=== PATIENT | female | born 1945 | race Caucasian/White ===

== ENCOUNTER 2017-11-21 09:51 | Emergency (ER) | payer MEDICARE ==
[2017-11-21 11:39] VITALS: BP 151/79
--- NOTE | 2017-11-21 12:01 | UC ---
Respiratory Complaint HPI - HPI Summary HPI Summary: Cough for 2 weeks-sometimes cough so much she gets dizzy--no fevers bringing up clear sputum, no chest pain, GIL, Orthopnea, - History of Current Complaint Chief Complaint: UCGeneralIllness Stated Complaint: URI Time Seen by Provider: 11/21/17 11:43 Hx Obtained From: Patient ?: No Onset/Duration: Gradual Onset, Lasting Weeks - 2, Still Present Timing: Constant Severity Initially: Mild Severity Currently: Mild Pain Intensity: 0 Character: Cough: Productive Aggravating Factors: Nothing Alleviating Factors: Nothing Associated Signs And Symptoms: Positive: Pleuritic Chest Pain, URI - Allergies/Home Medications Allergies/Adverse Reactions: Allergies Allergy/AdvReac Type Severity Reaction Status Date / Time MS Amoxicillin Allergy Intermediate Nausea And Verified 11/21/17 11:39 [From Augmentin] Vomiting MS Clavulanic Acid Allergy Intermediate Nausea And Verified 11/21/17 11:39 [From Augmentin] Vomiting SENSITIVITY TO PRESERVATIVES AdvReac Mild Itching Uncoded 11/21/17 11:39 Home Medications: Home Medications Multiple Vitamins W/ Minerals [FoundValue [place]] 1 tab PO DAILY [History Confirmed 11/21/17] PMH/Surg Hx/FS Hx/Imm Hx Previously Healthy: No - Chronic low back pain Endocrine History: Dyslipidemia Cardiovascular History: Hypertension Other History Of: Negative For: Anticoagulant Therapy - Surgical History Surgical History: Yes Surgery Procedure, Year, and Place: 07/30 RIGHT BUNIONECTOMY, RECONSTRUCTION OF RIGHT FOOT- [place]. 11/06/11 [place] [facility] [place] OF [place] [facility] [place]. [place]05/12 NEEDLE [place] [facility] 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 Lives: With Family Alcohol Use: Daily Alcohol Amount: 2 glasses red wine/day Substance Use Type: None Smoking Status (MU): Former Smoker Type: Cigarettes Amount Used/How Often: LESS THAN 1 PPD Length of Time of Smoking/Using Tobacco: 6 YRS Have You Smoked in the Last Year: No When Did the Patient Quit Smoking/Using Tobacco: 1969 - Immunization History Most Recent Influenza Vaccination: FALL 2012 Most Recent Tetanus Shot: UP TO DATE Most Recent Pneumonia Vaccination: MARCH 2011 Review of Systems Constitutional: Negative Skin: Negative Eyes: Negative ENT: Negative Respiratory: Cough Cardiovascular: Negative Gastrointestinal: Negative Genitourinary: Negative Motor: Negative Neurovascular: Negative Musculoskeletal: Negative Neurological: Negative Psychological: Negative Is Patient Immunocompromised?: No All Other Systems Reviewed And Are Negative: Yes Physical Exam Triage Information Reviewed: Yes Appearance: Well-Appearing, No Pain Distress, Well-Nourished Vital Signs: Initial Vital Signs Temp 97.6 F 11/21/17 11:35 Pulse 93 11/21/17 11:35 Resp 18 11/21/17 11:35 BP 151/79 11/21/17 11:35 Pulse Ox 100 11/21/17 11:35 Vital Signs Reviewed: Yes Eye Exam: Normal Eyes: Positive: Conjunctiva Clear ENT Exam: Normal ENT: Positive: Normal ENT inspection, Hearing grossly normal, Pharynx normal, TMs normal, Uvula midline. Negative: Nasal congestion, Nasal drainage, Tonsillar swelling, Tonsillar exudate, Trismus, Muffled voice, Hoarse voice, Dental tenderness, Sinus tenderness Dental Exam: Normal Neck exam: Normal Neck: Positive: Supple, Nontender, No Lymphadenopathy Respiratory Exam: Normal Respiratory: Positive: Chest non-tender, Lungs clear, Normal breath sounds, No respiratory distress, No accessory muscle use Cardiovascular Exam: Normal Cardiovascular: Positive: RRR, No Murmur, Pulses Normal, Brisk Capillary Refill Abdominal Exam: Normal Abdomen Description: Positive: Nontender, No Organomegaly, Soft Bowel Sounds: Positive: Present Musculoskeletal Exam: Normal Musculoskeletal: Positive: Strength Intact, ROM Intact, No Edema Neurological Exam: Normal Neurological: Positive: Alert, Muscle Tone Normal Psychological Exam: Normal Skin Exam: Normal UC Diagnostic Evaluation - Laboratory O2 Sat by Pulse Oximetry: 100 Diagnostic Studies Comment: Influenza A/B (-) - Radiology Xray Interpretation: No Acute Changes Radiology Interpretation Completed By: ED Physician, Radiologist - EKG Cardiac Rate: NL Cardiac Rhythm: Sinus: Normal Ectopy: None ST Segment: Normal Re-Evaluation - Re-Evaluation First Eval Change: Improved - Cough relief with Robitussin and Codiene Respiratory Course/Dx - Course Course Of Treatment: Robitussin and Codiene, Zithromax, increase fluids, follow with pcp - Differential Dx/Diagnosis Provider Diagnoses: Acute Bronchitis Discharge - Discharge Plan Condition: Stable Disposition: HOME Prescriptions: Azithromycin TAB* [Zithromax TAB (Z-PRAVIN) 250 mg #6 tabs] 2 tab PO .TODAY, THEN 1 DAILY #1 pravin guaiFENesin/CODIEN 100MG-10MG* [Robitussin AC 100Mg-10Mg*] 5 ml PO Q4H PRN #90 ml MDD 30 ml PRN Reason: Cough Patient Education Materials: Acute Bronchitis (ED), DASH Eating Plan (ED), Hypertension (ED) Referrals: Ailin De MD [Primary Care Provider] - 1 Week
[2017-11-21] MEDS ORDERED: guaiFENesin/CODIEN 100MG-10MG* 5 ML UDC PO ONE (12:12)
--- NOTE | 2017-11-21 12:39 | RAD ---
INDICATION: Cough COMPARISON: September 25, 2016 TECHNIQUE: PA and lateral dual-energy views were obtained. FINDINGS: Bones/Soft Tissues: There are no acute bony findings. Cardiomediastinal: The cardiomediastinal silhouette is normal. Lungs: There are no infiltrates. Pleura: There are no pleural effusions. Other: None IMPRESSION: NO ACTIVE DISEASE.
== END 2017-11-21 13:16 | disposition home or self-care (01) ==
LOC: UCEAST 09:51
DX: J20.9 Acute bronchitis, unspecified (principal); M54.5 Low back pain; E78.5 Hyperlipidemia, unspecified; I10 Essential (primary) hypertension; Z96.643 Presence of artificial hip joint, bilateral; Z87.891 Personal history of nicotine dependence
CPT/HCPCS: 71046; 87502; 93005; 99212; A9270-GY; G0463

== ENCOUNTER 2017-12-31 09:59 | Day surgery (SDC) | payer MEDICARE ==
[~2017-12-31 09:59] MED LIST: Acetaminophen TAB* 325 MG PO PRN; Buffered Lidocaine 0.9% SYRIN* 5 ML/SYR SYRINGE INTRADERM ONE; Cyclopentolate 1% OPTH.SOL* 2 ML BTL ONE; Ketorolac 0.5% OPHTH (NF) 0.5 % 5 ML BTL ONE; Lidocaine 1% MPF* 2 ML VIAL ONE; Neomycin/Polymy/Dex OPHTH.OIN* 3.5 GM ONE; Phenylephrine 2.5% OPTH.SOL* 2 ML BTL ONE; Tetracaine 0.5% OPTH.SOL 4 ML* 1 DROP BTL ONE; Tropicamide 1% OPTH.SOL* BTL ONE
[2017-12-31] MEDS ORDERED: Midazolam* 1 MG/ML 2 ML VIAL (2 MG) ONE (10:37)
[2017-12-31] MEDS ORDERED: fentaNYL* 50 MCG/ML 2 ML VIAL (100 MCG VIAL) ONE (10:37)
[2017-12-31 11:42] VITALS: BP 136/82
--- NOTE | 2017-12-31 13:12 | OP ---
DATE OF OPERATION/DATE OF DICTATION: 12/31/2017. DATE OF : 1945. SURGEON: Dr. Huang Dennison. DECISION ANALYST: None. ANESTHESIA: Topical with intravenous sedation. PRE-OP DIAGNOSIS: Cataract, right eye. POST-OP DIAGNOSIS: Cataract, right eye. OPERATIVE PROCEDURE: Phacoemulsification and cataract extraction with posterior chamber intraocular lens implant, right eye. COMPLICATIONS: None. BLOOD LOSS: None. OPERATIVE FINDINGS: The patient was brought to the operating room and received a small amount of int ravenous sedation. A drop of Tetracaine was placed in her right eye. She was prepped and draped in the usual sterile fashion for ophthalmic surgery and attention was directed to the right eye where a speculum was placed. A paracentesis was created at the 11 o'clock position and 0.1 cc of 1 percent p reservative-free Lidocaine was injected into the anterior chamber followed by DisCoVisc. The eye was digitally stabilized while a 2.75 mm keratome was used to create a triplanar clear corneal incision at the 9 o'clock position. A continuous curvilinear capsulorrhexis was created with a cystotome and Utrata forceps. BSS on a cannula was used to hydrodissect the lens from the capsule. Phacoemulsific ation was performed in a [id number] technique to create four fragments which were removed. R esidual cortical material was removed with irrigation and aspiration. DisCoVisc was used to inflate t he capsular bag and an AUOOTO 22.0 diopter lens was folded and inserted into the capsular bag. DisCo Visc was removed using irrigation and aspiration. BSS on a cannula was used to hydrate the corneal s troma and seal the wound. At the end of the case the pupil was round and the lens was centered. The eye was of normal pressure and the wound was water tight. The speculum was removed and topical Maxit rol ointment was placed on the surface of the eye. The eye was closed, patched and shielded and the patient was sent to the recovery room in stable condition with post operative instructions and follow -up appointment given. [id number]/[facility] #: [id number]
== END 2017-12-31 11:45 | disposition home or self-care (01) ==
LOC: OREAST 09:59
PROVIDERS: ATTEND Ophthalmology
DX: H25.11 Age-related nuclear cataract, right eye (principal); E78.00 Pure hypercholesterolemia, unspecified; F32.9 Major depressive disorder, single episode, unspecified; J30.1 Allergic rhinitis due to pollen; F17.210 Nicotine dependence, cigarettes, uncomplicated; Z96.643 Presence of artificial hip joint, bilateral; Z88.0 Allergy status to penicillin; Z88.8 Allergy status to other drugs, medicaments and biological substances
CPT/HCPCS: A9270-GY; J2250; J3010; V2632

== ENCOUNTER 2018-01-07 07:57 | Day surgery (SDC) | payer MEDICARE ==
[2018-01-07] MEDS ORDERED: fentaNYL* 50 MCG/ML 2 ML VIAL (100 MCG VIAL) ONE (09:00)
[2018-01-07] MEDS ORDERED: Midazolam* 1 MG/ML 2 ML VIAL (2 MG) ONE (09:00)
[2018-01-07 09:52] VITALS: BP 139/76
--- NOTE | 2018-01-08 04:02 | OP ---
DATE OF OPERATION: 01/07/18 [facility] DATE OF : 45 SURGEON: Dr. Huang Dennison. ADMITTING COORDINATOR: None. ANESTHESIA: Topical with intravenous sedation. PRE-OP DIAGNOSIS: Cataract, left eye. POST-OP DIAGNOSIS: Cataract, left eye. OPERATIVE PROCEDURE: Phacoemulsification and cataract extraction with posterior chamber intraocular lens implant, left eye. COMPLICATIONS: None. BLOOD LOSS: None. DESCRIPTION OF PROCEDURE: The patient was brought to the operating room and received a small amount of intravenous sedation. A drop of Tetracaine was placed in her left eye. The patient was prepped and draped in the usual sterile fashion for ophthalmic surgery and attention was directed to the left eye where a speculum was placed. A para-centesis was created at the 5 o'clock position and 0.1 cc of 1 percent preservative-free Lidocaine was injected into the anterior chamber followed by DisCoVisc. The eye was digitally stabilized while a 2.75 mm keratome was used to create a triplanar clear corneal incision at the 3 o'clock position. A continuous curvilinear capsulorrhexis was created with a cystotome and Utrata forceps. BSS on a cannula was used to hydrodissect the lens from the capsule. Phacoemulsification was performed in a divide-and- conquer technique to create four fragments which were removed. Residual cortical material was removed with irrigation and aspiration. DisCoVisc was used to inflate the capsular bag and an [id number] 22.0 diopter lens was folded and inserted into the capsular bag. DisCoVisc was removed using irrigation and aspiration. BSS on a cannula was used to hydrate the corneal stroma and seal the wound. At the end of the case the pupil was round and the lens was centered. The eye was of normal pressure and the wound was water tight. The speculum was removed and topical Maxitrol ointment was placed on the surface of the eye. The eye was closed, patched and shielded and the patient was sent to the recovery room in stable condition with post operative instructions and follow-up appointment given. [id number]/[facility] #: [id number] TANVI
== END 2018-01-07 10:02 | disposition home or self-care (01) ==
LOC: OREAST 07:57
PROVIDERS: ATTEND Ophthalmology
DX: H25.12 Age-related nuclear cataract, left eye (principal); E78.00 Pure hypercholesterolemia, unspecified; F32.9 Major depressive disorder, single episode, unspecified; J30.2 Other seasonal allergic rhinitis; Z88.0 Allergy status to penicillin; Z87.891 Personal history of nicotine dependence
CPT/HCPCS: A9270-GY; J2250; J3010; V2632

== ENCOUNTER → 2019-08-24 09:31 | Day surgery (SDC) | payer MEDICARE ==
[~2019-08-24 09:31] MED LIST changes: -Acetaminophen TAB* 325 MG PO PRN; -Buffered Lidocaine 0.9% SYRIN* 5 ML/SYR SYRINGE INTRADERM ONE; +Buffered Lidocaine 1% SYRIN* 1 ML/SYRINGE INTRADERM ONE; +Clindamycin 900 MG/D5W BAG(*) 900 MG/50 ML BAG IVPB ONE; -Cyclopentolate 1% OPTH.SOL* 2 ML BTL ONE; -Ketorolac 0.5% OPHTH (NF) 0.5 % 5 ML BTL ONE; +Lactated Ringers 1000 ML Bag* 1,000 ML IV SCH; -Lidocaine 1% MPF* 2 ML VIAL ONE; +Lidocaine 2% PF* 10 ML AMP ONE; +Midazolam* 1 MG/ML 2 ML VIAL (2 MG) ONE; -Neomycin/Polymy/Dex OPHTH.OIN* 3.5 GM ONE; -Phenylephrine 2.5% OPTH.SOL* 2 ML BTL ONE; +Propofol* 10 MG/ML 20 ML BTL ONE; -Tetracaine 0.5% OPTH.SOL 4 ML* 1 DROP BTL ONE; -Tropicamide 1% OPTH.SOL* BTL ONE; +fentaNYL* 50 MCG/ML 2 ML VIAL (100 MCG VIAL) ONE
[2019-08-24 15:22] VITALS: BP 153/84
--- NOTE | 2019-08-25 01:01 | OP ---
DATE OF OPERATION: 08/24/19 - [facility] DATE OF : 45 ATTENDING SURGEON: Martin Kaye MD ASSISTED BY: Lakhwinder Valle PA-C PRE-OP DIAGNOSIS: Painful midfoot hardware, right side. POST-OP DIAGNOSIS: Painful midfoot hardware, right side. OPERATIVE PROCEDURE: Removal of hardware, right midfoot. DESCRIPTION OF PROCEDURE: The patient was taken to the operating room where a longitudinal incision was made along the medial border of the midfoot. We stripped medially to expose the plate and dorsally to expose the cannulated lag screw. Torque headed screwdriver fit this quite well, it was a #6 and then dorsal screw was removed. However, the medial plate heads were smaller. We tried a 6 and 8 and we were unable to find a screw head to fit, so with a 2.4 mm drill bit or deja tip drill, I cored out the head of the screws. We then removed the plate over the shafts, which were then able to be removed with a rongeur and small needle mechanic welder truck driver tip. The wound was irrigated thoroughly, closed with interrupted Monocryl and nylon for the skin and a compression dressing applied. [id number]/[facility] #: [id number] TANVI
== END | disposition home or self-care (01) ==
LOC: OR 09:31
PROVIDERS: ATTEND Orthopaedic Surgery
DX: T84.84XA Pain due to internal orthopedic prosthetic devices, implants and grafts, initial encounter (principal); Y83.1 Surgical operation with implant of artificial internal device as the cause of abnormal reaction of the patient, or of later complication, without mention of misadventure at the time of the procedure; E78.00 Pure hypercholesterolemia, unspecified; M19.90 Unspecified osteoarthritis, unspecified site; F41.8 Other specified anxiety disorders; Z88.0 Allergy status to penicillin; Z88.1 Allergy status to other antibiotic agents; Z87.891 Personal history of nicotine dependence
CPT/HCPCS: 88300; J2001; J2250; J2704; J3010

== ENCOUNTER 2019-10-01 11:09 | Emergency (ER) | payer MEDICARE ==
--- NOTE | 2019-10-01 13:46 | ED ---
Back Pain - HPI Summary HPI Summary: Pt. is a 73 y.o female who presents to the ER for left lower back pain that radiates down leg. Pt. notes hx of low back pain and has seen neurosx in the past as well as pain clinic for injections. Pt. denies any new injuries or falls. Pt. notes recent right foot surgery. Pt. denies fever, chills, cp, sob, urinary sx, numbness, tingling, weakness, bowel or bladder dysfunction. Pt. notes she has a rx for percocet from recent sxs and took one last night with mild improvement. Sxs are are mild in severity. Movement makes sxs worse. Nothing makes sxs better. - History of Current Complaint Chief Complaint: EDBackInjuryPain Stated Complaint: BACK/LEG PAIN PER PT Time Seen by Provider: 10/01/19 13:45 Hx Obtained From: Patient Pain Intensity: 9 - Allergies/Home Medications Allergies/Adverse Reactions: Allergies Allergy/AdvReac Type Severity Reaction Status Date / Time amoxicillin [From Augmentin] AdvReac Intermediate Nausea And Verified 10/07/19 15:04 Vomiting clavulanic acid AdvReac Intermediate Nausea And Verified 10/07/19 15:04 [From Augmentin] Vomiting SENSITIVITY TO PRESERVATIVES AdvReac Mild Itching Uncoded 10/07/19 15:04 PMH/Surg Hx/FS Hx/Imm Hx Previously Healthy: Yes Endocrine/Hematology History: Denies: Hx Anticoagulant Therapy, Hx Bone Marrow Disease, Hx Diabetes, Hx Sickle Cell Disease, Hx Thyroid Disease, Hx Anemia Cardiovascular History: Reports: Hx Coronary Artery Disease - HIGH CHOLESTEROL, Hx Hypercholesterolemia Denies: Hx Angina, Hx Cardiomegaly, Hx Congestive Heart Failure, Hx Hypertension, Hx Pacemaker/ICD, Hx Peripheral Vascular Disease, Hx Rheumatic Fever, Hx Valvular Heart Disease, Other Cardiovascular Problems/Disorders Respiratory History: Denies: Hx Asthma, Hx Chronic Obstructive Pulmonary Disease (COPD), Hx Pulmonary Edema, Hx Pulmonary Embolism, Hx Sleep Apnea, Other Respiratory Problems/Disorders GI History: Reports: Hx Gastroesophageal Reflux Disease - [place] OMEPRAZOLE 3 X WEEK Denies: Hx Cirrhosis, Hx Crohn's Disease, Hx Hiatal Hernia, Hx Irritable Bowel, Hx Jaundice, Hx Ulcer, Other GI Disorders History: Reports: Other Problems/Disorders - recent bladder infection Denies: Hx Kidney Infection, Hx Kidney Stones, Hx Renal Disease Musculoskeletal History: Reports: Hx Arthritis - BACK, SPINE, HIPS, HANDS, Hx Bursitis - Left shoulder, Hx Tendonitis - Bilateral hands/thumbs, Other Musculoskeletal History - CURVATURE IN SPINE Sensory History: Reports: Hx Cataracts - Bilateral, currently, Hx Glaucoma - "VERY MILD" SEES OPTH. Q 6 MOS. Denies: Hx Contacts or Glasses, Hx Hearing Aid Opthamlomology History: Reports: Hx Cataracts - Bilateral, currently, Hx Glaucoma - "VERY MILD" SEES OPTH. Q 6 MOS. Denies: Hx Contacts or Glasses Neurological History: Reports: Hx Headaches - IN THE PAST, Other Neuro Impairments/Disorders - PAIN CLINIC PATIENT Denies: Hx Dementia, Hx Migraine, Hx Nerve Disease, Hx Seizures Psychiatric History: Reports: Hx Anxiety - INCREASED STRESS R/T IMMOBILITY, Hx Depression - R/T PAIN, DISCOMFORT OF RIGHT HIP, IMMOBILITY Denies: Hx Panic Disorder, Hx Substance Abuse - Cancer History Cancer Type, Location and Year: Lt BREAST - PRE CANCEROUS (REMOVED) Hx Chemotherapy: No Hx Radiation Therapy: No - Surgical History Surgery Procedure, Year, and Place: 07/30 RIGHT BUNIONECTOMY, RECONSTRUCTION OF RIGHT FOOT- [place]. 11/06/11 RIGHT TOTAL HIP REPLACEMENT- [facility]. 06/10/12 REVISION OF RIGHT TOTAL HIP REPLACEMENT- [facility]. 08/05/12 NEEDLE ASPIRATION OF RIGHT HIP- [facility]. 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, History Other Infectious Disease - STAPH INFECTION AFTER RIGHT HIP REPLACEMENT Denies: Hx Clostridium Difficile, Hx Hepatitis, Hx Human Immunodeficiency Virus (HIV), Hx Shingles, Hx Tuberculosis, Hx Known/Suspected VRE, Hx Known/ Suspected VRSA, Traveled Outside the [place] in Last 30 Days - Family History Known Family History: Positive: None, Non-Contributory - Social History Occupation: Retired Lives: With Family Alcohol Use: Daily Alcohol Amount: 2 glasses red wine/day Substance Use Type: Reports: None Smoking Status (MU): Former Smoker Type: Cigarettes Amount Used/How Often: LESS THAN 1 PPD Length of Time of Smoking/Using Tobacco: 6 YRS Have You Smoked in the Last Year: No Review of Systems Constitutional: Negative Negative: Fever, Chills ENT: Negative Cardiovascular: Negative Negative: Palpitations, Chest Pain Respiratory: Negative Negative: Shortness Of Breath, Cough Gastrointestinal: Negative Negative: Abdominal Pain, Vomiting, Diarrhea Genitourinary: Negative Negative: burning, incontinence Positive: Other - Left low back pain that radiates into left thigh. Skin: Negative Neurological: Negative Negative: Weakness, Paresthesia, Numbness All Other Systems Reviewed And Are Negative: Yes Physical Exam Triage Information Reviewed: Yes Vital Signs On Initial Exam: Initial Vitals Temp Pulse Resp BP Pulse Ox 98.1 F 83 16 172/98 100 10/01/19 11:16 10/01/19 11:16 10/01/19 11:16 10/01/19 11:16 10/01/19 11:16 Vital Signs Reviewed: Yes Appearance: Positive: Well-Appearing - Pt. lying in bed in NAD. Pleasant. Skin: Positive: Warm, Dry Head/Face: Positive: Normal Head/Face Inspection Eyes: Positive: Normal, EOMI, CATALINA Neck: Positive: Supple Respiratory/Lung Sounds: Positive: Clear to Auscultation, Breath Sounds Present Cardiovascular: Positive: Normal, RRR Abdomen Description: Positive: Nontender, Soft Musculoskeletal: Positive: Other - Pain on palpation to left low back and SI joint. 5/5 strength in bilateral LEs. Neurological: Positive: Normal, CN Intact II-III Psychiatric: Positive: Affect/Mood Appropriate Procedures - Sedation Patient Received Moderate/Deep Sedation with Procedure: No Diagnostics - Vital Signs Vital Signs Temp Pulse Resp BP Pulse Ox 10/01/19 11:16 98.1 F 83 16 172/98 100 - Laboratory Lab Statement: Any lab studies that have been ordered have been reviewed, and results considered in the medical decision making process. Back Pain Course/Dx - Course Course Of Treatment: Pt. with exacerbation of low back pain. She is afebrile and well appearing. No neurological deficits or evidence of cauda equina syndrome. Pt. given a dose of pain medication and xr obtained. Xray per radiology: IMPRESSION: #. No significant change in multilevel degenerative spondylosis and facet joint. osteoarthritis with associated grade 1 degenerative retrolisthesis at L1-L2 and grade 2. degenerative anterolisthesis at L5-S1. On re-exam pain is improving. Pt. comfortable with with dc home. Will rx a course of prednisone. Pt. states she has percocet at home and can take as instructed if needed. To ice/heat back. To call pcp for close f.u in 2- 3 days. Given warning signs to return to ER. Pt. understands and agrees with plan. - Diagnoses Differential Diagnosis/HQI/PQRI: Positive: Arthritis, Cauda Equina Syndrome, Fracture, Herniated Disc, Neoplasm, Strain, Sprain Provider Diagnoses: Back pain Discharge ED - Sign-Out/Discharge Documenting (check all that apply): Patient Departure - Discharge Plan Condition: Improved Disposition: HOME Prescriptions: methylPREDNISolone [Medrol Dosepak 4 MG*] 0 mg PO .SEE PRAVIN INSTRUCTION #1 tab Patient Education Materials: Acute Low Back Pain (ED) Referrals: Ailin De MD [Primary Care Provider] - Additional Instructions: Schedule a follow up appointment with PCP for Saturday Steroids as directed Continue home medication as directed Avoid heavy lifting Ice or heat Return to ER for increased pain, fever, numbness/tingling/weakness, loss of bowel or bladder function - Billing Disposition and Condition Condition: IMPROVED Disposition: Home - Attestation Statements Provider Attestation: pt seen by midlevel provider independently, based on their assessment, it was not necessary to present the case to me but I was available for consultation. I did not form a physician-patient relationship with the patient. The chart however, has been reviewed. am signing this note strictly in an administrative capacity.
[2019-10-01] MEDS ORDERED: oxyCODONE/Acetamin 5/325 MG* TAB PO ONE (14:12)
--- OUTSIDE RECORDS SUMMARY | 2019-10-01 14:30 | XMS REPORT | Continuity of Care Document ---
:1945 External Reference #:[id number] Author Name Martin Kaye M.D. (transmitted by agent of provider Abida Yeh) Address [address] [place] [phone] Care Team Providers Name Role Phone Ailin De MD - Internal Care Team Information Board Catcher Medicine Kat Zambrano MD - Internal Care Team Information Board Catcher [phone] Medicine Gus Perdomo MD - Interventional Care Team Information Board Catcher [phone] Pain Medicine Misael Nicole MD - Infectious Care Team Information Board Catcher Disease Gianluca Rico MD - Orthopaedic Care Team Information Board Catcher [phone] Surgery Problems Active Problems Provider Date Hyperlipidemia Ailin De M.D. Onset: 04/03/2011 Depressive disorder Ailin De M.D. Onset: 04/03/2011 Sciatica Gianluca Rico M.D. Onset: 04/06/2015 Enthesopathy of hip region Gianluca Rico M.D. Onset: 04/06/2015 Lumbosacral spondylosis without myelopathy Leonela Griffin MD Onset: Social History Type Date Description Comments Sex Unknown Tobacco Use Start: Unknown End: Former Cigarette Smoker smoked until about Unknown age 30 then quit ETOH Use Currently consumes 1 glass wine daily alcohol Tobacco Use Start: Unknown End: Patient is a former Unknown smoker Smoking Status Reviewed: 09/08/19 Patient is a former smoker Exercise Exercises regularly Type/Frequency Allergies, Adverse Reactions, Alerts Active Allergies Reaction Severity Comments Date Augmentin DIARRHEA 12/07/2009 Penicillin 11/12/2017 Medications Active Medications SIG Qnty Indications Ordering Provider Date Atorvastatin Calcium 1 by mouth every 30tabs Ailin Santino, 07/28/2019 day M.D. 10mg Tablets Duloxetine HCL 1 by mouth every 90caps Abigail Varn, 11/19/2017 60mg day N[address]P. Caps DR Minor Duloxetine HCL Take 1 Capsule 90caps Abigail Varn, 11/19/2017 30mg By Mouth Once N.P. Caps DR Minor Daily Vitamin D-3 1 po qd Unknown 2000Unit Tablets Aleve 2 by mouth twice Unknown 220mg Capsules a day as needed Calcium 600 + D 1 by mouth twice Unknown a day [id number] Tablets History Medications Oxycodone HCL 1 tab by mouth every 20tabs Conrad Lipscomb MD 08/25/2019 - 5mg 6 hours as needed for 09/02/2019 Tablets breakthrough pain Oxycodone-Acetamin 1 tab by mouth every 20tabs Conrad Lipscomb MD 2018 - ophen 6 hours as needed for 09/02/2019 5-325mg pain Tablets Medications Administered in Office Medication SIG Qnty Indications Ordering Provider Date Celestone 3 mg and 3mg Martin Blackburn MD 11/12/2017 Injection Celestone 3 mg and 3mg Martin Blackburn MD 11/12/2017 Injection Depomedrol 80MG Emmy Galeas M.D. 05/13/2014 Injection Kat Champion M.D. 01/03/2010 Injection PPD Kat Zambrano M.D. 12/14/2009 Injection Immunizations CPT Code Status Date Vaccine Lot # [id number] Given 06/29/2019 Influenza Virus Vaccine, Quadrivalent, Split, Preservative Free 06235 Given 07/29/2018 Fluzone High Dose 47339 Given 12/21/2015 Tetanus And Diptheria (Td) For Adult Use [id number] Preservative Free 91550 Given 09/22/2015 Pneumococcal Conjugate Vaccine 13 Valent For [id number] Intramuscular Use 46152 Given 04/03/2011 Pneumonia Vaccine [id number] 18800 Given 08/10/2009 Influenza Virus 3Yrs & Over 26279 Given 05/06/2007 Zoster (Zostavax) 69422 Given 05/06/2007 Tdap - Tetanus/Diptheria/Acellular Pertussis 65078 Given 05/06/2007 Tdap - Tetanus/Diptheria/Acellular Pertussis Vital Signs Date Vital Result Comment 09/08/2019 11:02am Height 57 inches 4'9" Weight 125.00 lb Heart Rate 84 /min Respiratory Rate 18 /min Body Temperature 97.9 F Pain Level 3 BMI (Body Mass Index) 27.0 kg/m2 09/03/2019 10:01am Height 57 inches 4'9" Weight 125.00 lb Heart Rate 64 /min BP Systolic 124 mmHg BP Diastolic 70 mmHg Respiratory Rate 16 /min Body Temperature 97.5 F Pain Level 5 BMI (Body Mass Index) 27.0 kg/m2 Results Test Acquired Date Facility Test Result H/L Range Note Surgical 08/24/2019 [facility] Surgical SEE RESULT [address] [place] [address] [phone] PDFReport SEE IMAGE Lipid Profile 06/11/2019 [facility] Triglycerides 86 mg/dL 2 (Trig/Chol/HDL) [address] [place] [address] [phone] Cholesterol 206 mg/dL 3 HDL Cholesterol 81.5 mg/dL 4 LDL Cholesterol 107 mg/dL 5 Comp Metabolic 06/11/2019 [facility] Sodium 140 mmol/L Normal 135-[address] [place] [address] [phone] Potassium 4.1 mmol/L Normal 3.5-5.0 Chloride 106 mmol/L Normal 101-111 Co2 Carbon Dioxide 27 mmol/L Normal 22-32 Anion Gap 7 mmol/L Normal 2-11 Glucose 96 mg/dL Normal 70-100 Blood Urea Nitrogen 21 mg/dL Normal 6-24 Creatinine 0.71 mg/dL Normal 0.51-0.95 BUN/Creatinine Ratio 29.6 High 8-20 Calcium 9.4 mg/dL Normal 8.6-10.3 Total Protein 6.5 g/dL Normal 6.4-8.9 Albumin 4.3 g/dL Normal 3.2-5.2 Globulin 2.2 g/dL Normal 2-4 Albumin/Globulin Ratio 2.0 Normal 1-3 Total Bilirubin 0.50 mg/dL Normal 0.2-1.0 Alkaline Phosphatase 75 U/L Normal 34-104 Alt 18 U/L Normal 7-52 Ast 16 U/L Normal 13-39 Egfr Non- 80.7 >60 Egfr 97.6 >60 6 1 SEE RESULT BELOW Name: LOLA BAKER : [address]: Martin Kaye MD Acct: [id number] Unit: [id number] AGE: 73 Location: OR Re08/24/19 SEX: F Status: REG SDC SPEC: [id number] FAISAL: 08/24/19- [facility] DR: Martin Kaye MD REQ: [id number] RECD: 08/24/19 STATUS: SOUT _ ORDERED: LEVEL 1 FINAL DIAGNOSIS Foot, right, hardware removal: Foreign body (orthopedic hardware) (gross diagnosis) PRE-OPERATIVE DIAGNOSIS Pain in internal implants - right foot GROSS DESCRIPTION The specimen is received fresh labeled, Right Foot Hardware, and consists of a 3.5 by up to 0.9 x 0.1 cm edouard metallic plate with multiple ovoid holes and one attached 1.9 x 0.2 cm silver metallic threaded focally disrupted screw with a small amount of adherent bone. The following inscription is identified: [id number] [employer]. Received separately in the same container are four threaded to partially threaded screws ranging from 1.4 x 0.3 cm to 3.2 x 0.3 cm. Three of the screws have no attached head; the largest screw is spline headed. Per established hospital medical staff protocol, no tissue is submitted. Gross only. Signed by and Reported on: Shantelle Walker MD 08/25/19 1005 END OF REPORT DEPARTMENT OF PATHOLOGY, [address] [place] [address] Refugio Avery M.D. Director [facility] # [id number] 2 Desirable: <150 Borderline High: 150-199 High: 200-499 Very High: >500 3 Desirable: <200 Borderline High: 200-239 High: >239 4 Low: <40 Desirable: 40-60 High: >60 5 Desirable: <100 Near Optimal: 100-129 Borderline High: 130-159 High: 160-189 Very High: >189 6 Because ethnic data is not always readily available, this report includes an eGFR for both -Americans and non- Americans. The National Kidney Disease Education Program (NKDEP) does not endorse the use of the MDRD equation for patients that are not between the ages of 18 and 70, are , have extremes of body size, muscle mass, or nutritional status, or are non- or non-. According to the National Kidney Foundation, irrespective of diagnosis, the stage of the disease is based on the level of kidney function: Stage Description GFR(mL/min/1.73 m(2)) 1 Kidney damage with normal or decreased GFR 90 2 Kidney damage with mild decrease in GFR 60-89 3 Moderate decrease in GFR 30-59 4 Severe decrease in GFR 15-29 5 Kidney failure <15 (or dialysis) Procedures Date Code Description Status 11/12/2018 [id number] Mammogram Completed 11/06/2017 [id number] Mammogram Completed 07/24/2016 [id number] Mammogram Completed 01/02/2016 [id number] Bone Mineral Density Test Completed 07/25/2015 [id number] Mammogram Completed 02/14/2015 [id number] Colonoscopy Completed 02/11/2015 [id number] Colonoscopy Completed 07/19/2014 [id number] Mammogram Completed 05/22/2013 [id number] Mammogram Completed 07/30/2011 [id number] Mammogram Completed 04/10/2011 [id number] Bone Mineral Density Test Completed 07/24/2010 [id number] Mammogram Completed 05/25/2010 [id number] Colonoscopy Completed 09/02/2008 [id number] Diabetic Foot Exam Completed 08/19/2008 [id number] Bone Mineral Density Test Completed Medical Devices Description No Information Available Encounters Type Date Location Provider Dx Diagnosis Office Visit 07/02/2019 [facility] Martin Kaye, T84.84xA Pain due to 10:00a at [facility] internal orthopedic prosth dev/grft, init Office Visit 06/11/2019 [facility] Vincent Haskins M27.2 Inflammatory 4:00p Infectious [facility] conditions of jaws Diseases Assessments Date Code Description Provider 09/03/2019 T84.84xA Pain due to internal orthopedic Martin aKye M.D. prosthetic devices, implants and grafts, initial encounter 09/03/2019 Z00.01 Encounter for general adult medical Martin Kaye M.D. examination with abnormal findings 08/04/2019 T84.84xA Pain due to internal orthopedic Martin Kaye M.D. prosthetic devices, implants and grafts, initial encounter 07/02/2019 T84.84xA Pain due to internal orthopedic Martin Kaye M.D. prosthetic devices, implants and grafts, initial encounter 06/16/2019 Z00.01 Encounter for general adult medical Ailin De M.D. examination with abnormal findings 06/16/2019 E78.5 Hyperlipidemia, unspecified Ailin De M.D. 06/16/2019 R03.0 Elevated blood-pressure reading, Ailin De M.D. without diagnosis of hypertension 06/16/2019 Z12.31 Encounter for screening mammogram for Ailin De M.D. 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 Plan of Treatment Future Appointment(s):06/28/2020 2:20 pm - Abigail Camacho N.P. at [facility] Internal Medicine - [facility] Functional Status Description No Information Available Mental Status Description No Information Available Referrals Description No Information Available
--- OUTSIDE RECORDS SUMMARY | 2019-10-01 14:30 | XMS REPORT | Continuity of Care Document ---
:1945 External Reference #:[id number] Author Name Martin Kaye M.D. (transmitted by agent of provider Renetta Lane) Address [address] [place] [phone] Care Team Providers Name Role Phone Ailin De MD - Internal Care Team Information Research And Development Engineer Medicine Kat Zambrano MD - Internal Care Team Information Research And Development Engineer Medicine Gus Perdomo MD - Interventional Care Team Information Research And Development Engineer [phone] Pain Medicine Misael Nicole MD - Infectious Care Team Information Research And Development Engineer Disease Gianluca Rico MD - Orthopaedic Care Team Information Research And Development Engineer [phone] Surgery Problems Active Problems Provider Date Hyperlipidemia [...] a former Unknown smoker Smoking Status Reviewed: 09/03/19 Patient is a former smoker Exercise Exercises [...] 1 by mouth twice Unknown a day [id number] Tablets History Medications Oxycodone HCL 1 tab [...] CPT Code Status Date Vaccine Lot # [id number] Given 06/29/2019 Influenza Virus Vaccine, Quadrivalent, Split, Preservative Free 06758 Given 07/29/2018 Fluzone High Dose 31860 Given 12/21/2015 Tetanus And Diptheria (Td) For Adult Use [id number] Preservative Free 27989 Given 09/22/2015 Pneumococcal Conjugate Vaccine 13 Valent For [id number] Intramuscular Use 06261 Given 04/03/2011 Pneumonia Vaccine [id number] 39550 Given 08/10/2009 Influenza Virus 3Yrs & Over 77866 Given 05/06/2007 Zoster (Zostavax) 04128 Given 05/06/2007 Tdap - Tetanus/Diptheria/Acellular Pertussis 95508 Given 05/06/2007 Tdap - Tetanus/Diptheria/Acellular Pertussis Vital Signs Date Vital Result Comment 09/03/2019 10:01am Height 57 inches 4'9" Weight 125.00 lb Heart Rate 64 /min BP Systolic 124 mmHg BP Diastolic 70 mmHg Respiratory Rate 16 /min Body Temperature 97.5 F Pain Level 5 BMI (Body Mass Index) 27.0 kg/m2 08/04/2019 10:32am Height 57 inches 4'9" Weight 128.00 lb Heart Rate 79 /min BP Systolic 136 mmHg BP Diastolic 84 mmHg Respiratory Rate 18 /min Body Temperature 97.1 F Pain Level 5 BMI (Body Mass Index) 27.7 kg/m2 Results Test Acquired Date Facility Test Result H/L Range Note Surgical 08/24/2019 [facility] Surgical SEE RESULT [address] [place] [address] [phone] PDFReport SEE IMAGE Lipid Profile 06/11/2019 [facility] Triglycerides 86 mg/dL 2 (Trig/Chol/HDL) [address] [place] [address] [phone] Cholesterol 206 mg/dL 3 HDL Cholesterol 81.5 mg/dL 4 LDL Cholesterol 107 mg/dL 5 Comp Metabolic 06/11/2019 [facility] Sodium 140 mmol/L Normal 135-[address] [place] [address] [phone] Potassium 4.1 mmol/L Normal 3.5-5.0 Chloride 106 [...] [address]: Martin Kaye MD Acct: [id number] Unit: [id number] AGE: 73 Location: OR Re08/24/19 SEX: F Status: REG SDC SPEC: [id number] FAISAL: 08/24/19- SUBM DR: Martin Kaye MD REQ: [id number] RECD: 08/24/19 STATUS: SOUT _ ORDERED: LEVEL [...] adherent bone. The following inscription is identified: [phone] [id number] [employer] Received separately in the same container are [...] 1005 END OF REPORT DEPARTMENT OF PATHOLOGY, [address] [place] [address] Refugio Avery M.D. Director [facility] # [id number] 2 Desirable: <150 Borderline High: 150-199 High: [...] dialysis) Procedures Date Code Description Status 11/12/2018 [id number] Mammogram Completed 11/06/2017 [id number] Mammogram Completed 07/24/2016 [id number] Mammogram Completed 01/02/2016 [id number] Bone Mineral Density Test Completed 07/25/2015 [id number] Mammogram Completed 02/14/2015 [id number] Colonoscopy Completed 02/11/2015 [id number] Colonoscopy Completed 07/19/2014 [id number] Mammogram Completed 05/22/2013 [id number] Mammogram Completed 07/30/2011 [id number] Mammogram Completed 04/10/2011 [id number] Bone Mineral Density Test Completed 07/24/2010 [id number] Mammogram Completed 05/25/2010 [id number] Colonoscopy Completed 09/02/2008 [id number] Diabetic Foot Exam Completed 08/19/2008 [id number] Bone Mineral Density Test Completed Medical Devices Description No Information Available Encounters Type Date Location Provider Dx Diagnosis Office Visit 07/02/2019 [facility] Martin Kaye, T84.84xA Pain due to 10:00a at [facility] internal orthopedic prosth dev/grft, init Office Visit 06/11/2019 [facility] Vincent Haskins M27.2 Inflammatory 4:00p Infectious [facility] conditions of jaws Diseases Assessments Date Code [...] 2:20 pm - [facility]ail [facility] Martin Kaye M.D.T84.84xA Pain due to internal orthopedic prosthetic devices, implants and grafts, initial encounterNew Xrays: Foot Right 3+ VWS, Ordered: 09/03/19Follow up:1 weekZ00.01 Encounter for general adult medical examination with abnormal findings Functional Status Description No Information Available Mental Status Description No Information Available Referrals Description No Information Available
--- OUTSIDE RECORDS SUMMARY | 2019-10-01 14:30 | XMS REPORT | Continuity of Care Document ---
:1945 External Reference #:[id number] Author Name Martin Kaye M.D. (transmitted by agent of provider Jessi Garay) Address [address] [place] [address] Care Team Providers Name Role Phone Ailin De MD - Internal Care Team Information Sound Art Instructor Medicine Kat Zambrano MD - Internal Care Team Information Sound Art Instructor Medicine Gus Perdomo MD - Interventional Care Team Information Sound Art Instructor Pain Medicine Misael Nicole MD - Infectious Care Team Information Sound Art Instructor [phone] Disease Gianluca Rico MD - Orthopaedic Care Team Information Sound Art Instructor Surgery Problems Active Problems Provider Date Hyperlipidemia [...] a former Unknown smoker Smoking Status Reviewed: 08/04/19 Patient is a former smoker Exercise Exercises regularly Type/Frequency Allergies, Adverse Reactions, Alerts Active Allergies Reaction Severity Comments Date Augmentin DIARRHEA 12/07/2009 Penicillin 11/12/2017 Medications Active Medications SIG Qnty Indications Ordering Date Provider Atorvastatin 1 by mouth every 30tabs Ailin 07/28/2019 Calcium day Vita De 10mg Tablets Tizanidine HCL one by mouth every 30caps Abigail Kemp, 02/16/2019 4mg 8 hours as needed N.P. Capsules muscle spasms Ondansetron HCL one by mouth every 30tabs R11.0 Abigail Varjesus, 01/13/2019 4mg 8 hours as needed N.P. Tablets for nausea Lidocaine apply thin film to 45gm Abigail Var, 01/20/2018 4% Cream affected area 2 - N.P. 3 times daily Ventolin HFA 1 to 2 inhalations 1inhaler J20.9 Abigail Varjesus, 11/25/2017 every 4 hours as N.P. 108(90Base) mcg/Act needed Aerosol Duloxetine HCL 1 by mouth every 90caps Abigail Kemp, 11/19/2017 60mg day N[address]P. Caps DR Minor Duloxetine HCL 1 by mouth every 30caps Abigail Varjesus, 11/19/2017 30mg day N.P. Caps DR Minor Vitamin D-3 1 po qd Unknown 2000Unit Tablets Aleve 2 by mouth twice a Unknown 220mg day as needed Capsules Calcium 600 + D 1 by mouth twice a Unknown day [id number] Tablets Medications Administered in Office Medication SIG Qnty Indications Ordering Provider Date Celestone 3 mg and 3mg Martin Blackburn MD 11/12/2017 Injection Celestone 3 mg and 3mg Martin Blackburn MD 11/12/2017 Injection Depomedrol 80MG Emmy Galeas M.D. 05/13/2014 Injection Kat Champion M.D. 01/03/2010 Injection Kat Champion M.D. 12/14/2009 Injection Immunizations CPT Code Status Date Vaccine Lot # [id number] Given 06/29/2019 Influenza Virus Vaccine, Quadrivalent, Split, Preservative Free 73729 Given 07/29/2018 Fluzone High Dose 61198 Given 12/21/2015 Tetanus And Diptheria (Td) For Adult Use [id number] Preservative Free 39370 Given 09/22/2015 Pneumococcal Conjugate Vaccine 13 Valent For [id number] Intramuscular Use 27149 Given 04/03/2011 Pneumonia Vaccine [id number] 86746 Given 08/10/2009 Influenza Virus 3Yrs & Over 13583 Given 05/06/2007 Zoster (Zostavax) 92793 Given 05/06/2007 Tdap - Tetanus/Diptheria/Acellular Pertussis 23914 Given 05/06/2007 Tdap - Tetanus/Diptheria/Acellular Pertussis Vital Signs Date Vital Result Comment 08/04/2019 10:32am Height 57 inches 4'9" Weight 128.00 lb Heart Rate 79 /min BP Systolic 136 mmHg BP Diastolic 84 mmHg Respiratory Rate 18 /min Body Temperature 97.1 F Pain Level 5 BMI (Body Mass Index) 27.7 kg/m2 07/02/2019 10:13am Height 57 inches 4'9" Weight 125.00 lb Heart Rate 86 /min BP Systolic 128 mmHg BP Diastolic 82 mmHg Respiratory Rate 16 /min Pain Level 8 BMI (Body Mass Index) 27.0 kg/m2 Results Test Date Facility Test Result H/L Range Note Lipid Profile 06/11/2019 [facility] Triglycerides 86 mg/dL 1 (Trig/Chol/HDL) [address] [place] [address] [phone] Cholesterol 206 mg/dL 2 HDL Cholesterol 81.5 mg/dL 3 LDL Cholesterol 107 mg/dL 4 Comp Metabolic 06/11/2019 [facility] Sodium 140 mmol/L Normal 135-145 Panel [address] [place] [address] [phone] Potassium 4.1 mmol/L Normal 3.5-5.0 Chloride 106 [...] Egfr Non- 80.7 >60 Egfr 97.6 >60 5 1 Desirable: <150 Borderline High: 150-199 High: 200-499 Very High: >500 2 Desirable: <200 Borderline High: 200-239 High: >239 3 Low: <40 Desirable: 40-60 High: >60 4 Desirable: <100 Near Optimal: 100-129 Borderline High: 130-159 High: 160-189 Very High: >189 5 Because ethnic data is not always readily [...] dialysis) Procedures Date Code Description Status 11/12/2018 [id number] Mammogram Completed 11/06/2017 [id number] Mammogram Completed 07/24/2016 [id number] Mammogram Completed 01/02/2016 [id number] Bone Mineral Density Test Completed 07/25/2015 [id number] Mammogram Completed 02/14/2015 [id number] Colonoscopy Completed 02/11/2015 [id number] Colonoscopy Completed 07/19/2014 [id number] Mammogram Completed 05/22/2013 [id number] Mammogram Completed 07/30/2011 [id number] Mammogram Completed 04/10/2011 [id number] Bone Mineral Density Test Completed 07/24/2010 [id number] Mammogram Completed 05/25/2010 [id number] Colonoscopy Completed 09/02/2008 [id number] Diabetic Foot Exam Completed 08/19/2008 [id number] Bone Mineral Density Test Completed Medical Devices Description No Information Available Encounters Type Date Location Provider Dx Diagnosis Office Visit 07/02/2019 [facility] Martin Kaye, T84.84xA Pain due to 10:00a at [facility] internal orthopedic prosth dev/grft, init Office Visit 06/11/2019 [facility] Vincent Haskins M27.2 Inflammatory 4:00p Infectious [facility] conditions of jaws Diseases Assessments Date Code Description Provider 08/04/2019 T84.84xA Pain due to internal orthopedic [...] Misael Nicole M.D. Plan of Treatment Future Appointment(s):09/03/2019 10:00 am - Martin Kaye M.D. at [facility]08/24/2019 7:30 am - Martin Kaye M.D. at [facility]06/28/2020 2:20 pm - [facility] Martin Kaye M.D.T84.84xA Pain due to internal orthopedic prosthetic devices, implants and grafts, initial encounterFollow up: Follow up: 10-14 days postop Functional Status Description No Information Available Mental Status Description No Information Available Referrals Description No Information Available
[2019-10-01 16:21] VITALS: BP 149/73
== END 2019-10-01 16:15 | disposition home or self-care (01) ==
LOC: ED 11:09
DX: M54.5 Low back pain (principal); I25.10 Atherosclerotic heart disease of native coronary artery without angina pectoris; E78.00 Pure hypercholesterolemia, unspecified; K21.9 Gastro-esophageal reflux disease without esophagitis; F41.9 Anxiety disorder, unspecified; F32.9 Major depressive disorder, single episode, unspecified; Z96.643 Presence of artificial hip joint, bilateral; Z87.891 Personal history of nicotine dependence; Z79.899 Other long term (current) drug therapy; Z88.0 Allergy status to penicillin; Z88.1 Allergy status to other antibiotic agents
CPT/HCPCS: 72110; 99282; A9270-GY